=== PATIENT | male | born 1955 | race African-American/Black ===

== ENCOUNTER 2017-05-31 22:50 | Emergency (ER) | payer OTHER ==
[~2017-05-31] VITALS: Ht 177.8 cm; Wt 105.0 kg
[~2017-05-31 22:50] MED LIST: ASPI-1158
[2017-05-31 23:36] VITALS: BP 121/86
== END 2017-06-01 05:18 | disposition left against medical advice (07) ==
LOC: ER 06-01 02:28
DX: R10.9 Unspecified abdominal pain (principal); E11.9 Type 2 diabetes mellitus without complications; Z53.21 Procedure and treatment not carried out due to patient leaving prior to being seen by health care provider
CPT/HCPCS: 82962